=== PATIENT | male | born 1995 | race Two or more races ===

== ENCOUNTER 2024-06-24 13:43 | Inpatient (IN) | payer SELFPAY ==
[~2024-06-24] VITALS: Ht 172.7 cm; Wt 87.2 kg
--- NOTE | 2024-06-24 14:09 | ECG ---
[facility] Test Date: 2024-06-24 Test Time: 14:01:32 Pat Name: TONY SANCHEZ Department: ER Room: 0285 Gender: M Market Research Assistant: VICTORINO : 1995 Requested By: ANGELY ABRAHAM Order Number: [id number] Reading MD: Nash Salas Measurements Intervals [place] Rate: 89 P: 64 SD: 134 QRS: 70 QRSD: 120 T: 54 QT: 404 QTc: 492 Interpretive Statements Sinus rhythm Nonspecific intraventricular conduction delay Inferolateral infarct, old Electronically Signed On 06-24-2024 18:20:47 PDT by Nash Salas Please click the below link to view image of tracing.
--- NOTE | 2024-06-24 14:12 | ED.PDOC ---
History of Present Illness HPI Comments 28M presents to the ER w/ prior Hx of lymphoma cancer and Sx removal from the right neck to the chest which all may be associated to the c/c of Gen weakness. Pt reports on feeling tired, weak and having back pain for the past 2 days due from stress. Social Hx of occasional alcohol use, but denies tobacco and substance use. Family Hx of DM. Denies chills, fever, N/V/D, SOB, CP or no other associated symptoms, modifiers, recent injuries or sick contacts at this time. Time Seen by MD: 14:00 Reviewed Notes: Nurses Notes, Medications, Allergies Allergies: Coded Allergies: NO KNOWN ALLERGIES (Unverified , 06/24/24) Information Source: Patient Mode of Arrival: Ambulatory Severity: Moderate Timing: Days Duration: Since onset, Days Prehospital treatment: None Past Medical History PAST MEDICAL HISTORY: Cancer (Lymphoma) Surgical History (Other): Cancer removal from the right side of the neck to the chest Family History Family History: Reviewed,noncontributory to illness, Unknown Social History Smoker: Non-Smoker Alcohol: Denies ETOH Use Drugs: Denies Drug Use Lives In: Home Constitutional: reports: weakness; denies: chills, diaphoresis, fatigue, fever, malaise, sweats, others EENTM: denies: blurred vision, double vision, ear bleeding, ear discharge, ear drainage, ear pain, ear ringing, eye pain, eye redness, hearing loss, mouth pain, mouth swelling, nasal discharge, nose bleeding, nose congestion, nose pain, photophobia, tearing, throat pain, throat swelling, voice changes, others Respiratory: denies: cough, hemoptysis, orthopnea, SOB at rest, shortness of breath, SOB with excertion, stridor, wheezing, others Cardiovascular: denies: chest pain, dizzy spells, diaphoresis, Dyspnea on exertion, edema, irregular heart beat, left arm pain, lightheadedness, palpitations, PND, syncope, others Gastrointestinal: denies: abdomen distended, abdominal pain, blood streaked bowels, constipated, diarrhea, dysphagia, difficulty swallowing, hematemesis, melena, nausea, poor appetite, poor fluid intake, rectal bleeding, rectal pain, vomiting, others Genitourinary: denies: burning, dysuria, flank pain, frequency, hematuria, incontinence, penile discharge, penile sore, pain, testicle pain, testicle swelling, urgency, others Neurological: denies: dizziness, fainting, headache, left sided numbness, left sided weakness, numbness, paresthesia, pre-existing deficit, right sided numbness, right sided weakness, seizure, speech problems, tingling, tremors, weakness, others Musculoskeletal: reports: back pain; denies: gout, joint pain, joint swelling, muscle pain, muscle stiffness, neck pain, others Integumetry: denies: bruises, change in color, change in hair/nails, dryness, laceration, lesions, lumps, rash, wounds, others Allergic/Immunocompromised: denies: Difficulty Healing, Frequent Infections, Hives, Itching, others Hematologic/Lymphatic: denies: anemia, blood clots, easy bleeding, easy bruising, swollen glands, others Endocrine: denies: excessive hunger, excessive sweating, excessive thirst, excessive urination, flushing, intolerance to cold, intolerance to heat, unexplained weight gain, unexplained weight loss, others Psychiatric: denies: anxiety, bipolar disorder, depression, hopeless, panic disorder, schizophrenia, sleepless, suicidal, others All Other Systems: Reviewed and Negative Physical Exam General Appearance: Moderate Distress, Normal HEENT: Normal ENT Inspection, Pharynx Normal, Scleral Icterus (L), Scleral Icterus (R), TMs Normal Neck: Full Range of Motion, Non-Tender, Normal, Normal Inspection Respiratory: Chest Non-Tender, Lungs Clear, No Accessory Muscle Use, No Respiratory Distress, Normal Breath Sounds Cardiovascular: No Edema, No JVD, No Murmur, No Gallop, Normal Peripheral Pulses, Regular Rate/Rhythm Breast Exam: Deferred Gastrointestinal: No Organomegaly, Non Tender, No Pulsatile Mass, Normal Bowel Sounds, Soft Genitalia: Deferred Pelvic: Deferred Rectal: Deferred Extremities: No calf tenderness, Normal capillary refill, Normal inspection, Normal range of motion, Non-tender, No pedal edema Musculoskeletal : Apperance: Normal Neurologic: Alert, senior biostatistician/group leader II-XII nml as Tested, No Motor Deficits, Normal Affect, Normal Mood, No Sensory Deficits Cerebellar Function: Normal Reflexes: Normal Skin: Dry, Normal Color, Warm Peripheral Pulses: 3+ Radial (R), 3+ Radial (L) Lymphatic: No Adenopathy Was a procedure done? Was a procedure done?: No Differential Dx Considerations may include: Anemia Electrolyte imbalance X-Ray, Labs, Meds, VS Vital Signs Date Time Temp Pulse Resp B/P (MAP) Pulse Ox O2 Delivery O2 Flow Rate FiO2 06/24/24 14:08 97.6 92 16 102/66 (78) 98 97.6 95/65 (75) 06/24/24 14:01 89 Lab Test 06/24/24 14:09 06/24/24 14:05 Range/Units Urine Color Red-brown Yellow Urine Clarity Turbid H Clear Urine pH 6.0 5.0-9.0 Urine Specific [place] 1.024 1.001-1.035 Urine Protein 2+ H Negative Urine Ketones Trace Negative Urine Blood 1+ H Negative /uL Urine Nitrite Negative Negative Urine Bilirubin 2+ Negative Urine Urobilinogen Over Negative mg/dL Urine Leukocyte Esterase Negative Negative /uL Urine RBC 4 0 - 3 /hpf Urine WBC Clumps Present None Seen /hpf Urine Microscopic WBC 18 H 0-3 /HPF Urine Squamous Epithelial Cells Few <5 /hpf Urine Bacteria Few H None Seen /hpf Urine Mucus Few None Seen Urine Glucose Trace Normal mg/dL White Blood Count 6.4 4.4-10.8 10^3/uL Red Blood Count 5.00 4.5-5.90 10^6/uL Hemoglobin 12.9 L 13.5-17.5 g/dL Hematocrit 38.8 L 41.0-53.0 % Mean Corpuscular Volume 77.7 L 80.0-100.0 fL Mean Corpuscular Hemoglobin 25.8 L 28.0-32.0 pg Mean Corpuscular Hemoglobin Concent 33.2 32.0-36.0 g/dL Red Cell Distribution Width 14.3 11.8-14.3 % Platelet Count 106 L 140-450 10^3/uL Mean Platelet Volume 10.5 6.9-10.8 fL Neutrophils (%) (Auto) 84.9 H 37.0-80.0 % Lymphocytes (%) (Auto) 2.5 L 10.0-50.0 % Monocytes (%) (Auto) 12.5 H 0.0-12.0 % Eosinophils (%) (Auto) 0.0 0.0-7.0 % Basophils (%) (Auto) 0.1 0.0-2.0 % Neutrophils # (Auto) 5.4 1.6-8.6 10 ^3/uL Lymphocytes # (Auto) 0.2 L 0.4-5.4 10 ^3/uL Monocytes # (Auto) 0.8 0-1.3 10 ^3/uL Eosinophils # (Auto) 0 0-0.8 10 ^3/uL Basophils # (Auto) 0 0-0.2 10 ^3/uL Nucleated Red Blood Cells 0.1 % Sodium Level 129 L 136-145 mmol/L Potassium Level 3.7 3.5-5.1 mmol/L Chloride Level 89 L 98-107 mmol/L Carbon Dioxide Level 28 20-31 mmol/L Anion Gap 12 5-15 Blood Urea Nitrogen 15 9-23 mg/dL Creatinine 1.14 0.700-1.30 mg/dL Glomerular Filtration Rate Calc 89 >90 mL/min BUN/Creatinine Ratio 13.2 10.0-20.0 Serum Glucose 121 H 74-106 mg/dL Calcium Level 9.3 8.7-10.4 mg/dL Troponin I High Sensitivity 4 </=54 ng/L Patient alert. He is feeling weak. Urinalysis shows dehydration. Vitals stable. Sodium is low. Patient blood sugar slightly elevated. Possible prediabetic. Neutrophils are elevated. WBC within normal limits. Possible urosepsis. Was given Rocephin. He does have a history of lymphoma which was operated on. Chest x-ray does show shadowing. Possibly will need a CT chest. Establish intravenous access. Was given fluids. Reviewed his history. Explained to the patient. Continue monitoring. Time of 1ST Reevaluation: 14:30 Reevaluation 1ST: Unchanged Patient Education/Counseling: Diagnosis, Treatment, Prognosis Family Education/Counseling: No Family Present Departure 1 Departure Time of Disposition: 15:27 Impression: Primary Impression: Hyponatremia Additional Impressions: Generalized weakness Uncontrolled diabetes mellitus Qualified Codes: E13.65 - Other specified diabetes mellitus with hyperglycemia Dehydration Disposition: ADMITTED INPATIENT Admit to: Med Surg Condition: Guarded Critical Care Note Critical Care Time?: No Stability Stability form required: No Heart Score Heart Score: Heart Score Response (Comments) Value History N/A 0 EKG N/A 0 Age N/A 0 Risk Factors N/A 0 Troponin N/A 0 Total 0 I personally scribed for ANGELY ABRAHAM MD ([email or web address]) on 06/24/24 at 14:12. Electronically submitted by Joao Ramos ([email or web address]). ANGELY ABRAHAM MD Jun 24, 2024 14:12
--- NOTE | 2024-06-24 14:38 | DVH ---
CHEST RADIOGRAPH Indication: sob Technique: Single frontal view of the chest was obtained COMPARISON: None FINDINGS: Lines and Tubes: None Lungs: Hypoinflation. No focal consolidation. Pleura: No effusion. No pneumothorax. Cardiomediastinal contours: Convex soft tissue density at the right upper mediastinum of uncertain ca use. There is also convex left hilar density which is also nonspecific but may represent the pulmon efrain artery. Bones: Unremarkable IMPRESSION: 1. Lungs are grossly clear. 2. Indeterminate convex densities at the right upper mediastinum and left hilum. Recommend chest CT.
[2024-06-24 14:49] LABS: Basophils # (auto) 0 10 ^3/uL (0-0.2); Basophils % (auto) 0.1 % (0.0-2.0); Eosinophils # (auto) 0 10 ^3/uL (0-0.8); Lymphocytes # (auto) 0.2 10 ^3/uL (0.4-5.4); White Blood Cell 6.4 10^3/uL (4.4-10.8)
[2024-06-24 14:51] LABS: Hematocrit 38.8 % (41.0-53.0); Hemoglobin 12.9 g/dL (13.5-17.5); Lymphocytes % (auto) 2.5 % (10.0-50.0); Mean Corpuscular Hemoglobin 25.8 pg (28.0-32.0); Mean Corpuscular Hgb Conc. 33.2 g/dL (32.0-36.0); Mean Corpuscular Volume 77.7 fL (80.0-100.0); Monocytes # (auto) 0.8 10 ^3/uL (0-1.3); Monocytes % (auto) 12.5 % (0.0-12.0); Neutrophils # (auto) 5.4 10 ^3/uL (1.6-8.6); Neutrophils % (auto) 84.9 % (37.0-80.0); Nucleated Red Blood Cells % 0.1 %; Platelet Count (auto) 106 10^3/uL (140-450); Red Cell Distribution Width 14.3 % (11.8-14.3)
[2024-06-24 14:56] LABS: Urine Bacteria FEW /hpf (None Seen); Urine Blood 1+ /uL (Negative); Urine Clarity Turbid (Clear); Urine Mucus FEW (None Seen); Urine Protein, UAD 2+ (Negative); Urine Specific Gravity 1.024 (1.001-1.035); Urine Squamous Epithelial Cell FEW /hpf (<5); Urine Urobilinogen OVER mg/dL (Negative); Urine WBC 18 /HPF (0-3); Urine WBC Clumps PRESENT /hpf (None Seen)
[2024-06-24 14:58] LABS: Urine Color RED-Brown (Yellow)
[2024-06-24 15:08] LABS: Potassium 3.7 mmol/L (3.5-5.1)
[2024-06-24 15:09] LABS: Anion Gap 12 (5-15); Calcium 9.3 mg/dL (8.7-10.4); Carbon Dioxide 28 mmol/L (20-31)
[2024-06-24 15:10] LABS: Chloride 89 mmol/L (98-107); Sodium 129 mmol/L (136-145)
[2024-06-24 15:14] LABS: BUN/Creatinine Ratio 13.2 (10.0-20.0); Blood Urea Nitrogen 15 mg/dL (9-23)
[2024-06-24 15:15] LABS: Glucose 121 mg/dL (74-106)
--- NOTE | 2024-06-24 15:57 | DVHHP2 ---
History of Present Illness Reason for Visit: Weakness and back pain History of Present Illness Parish Danielle is a 28-year-old male with past medical history of lymphoma cancer and lymphadenectomy presents to the ED for generalized weakness, cold sweats, fatigue, and back pain x2 days. Patient states that he is under persona l stress and believes this is what is causing the symptoms. Patient denies any recent trauma or injury, lifting of heavy equipment, recent ingestion of spoiled who, recent sick contacts, fever, chest pain, shortness of breath, abdominal pain, nausea, vomiting, diarrhea, lightheadedness, or dizziness. Patient reports that the surgery was when he was 13 years old in a facility in [place]. Past Medical History Lymphoma cancer Past Surgical History: Other (Lymphadenectomy) Family History: DM, Other (Mom with diabetes) Smoke: No ALCOHOL: occassional Drugs: None Lives: with Family Domestic Violence: Neg Review of Systems Constitutional: Yes: Chills, Weakness, Other (Fatigue) Musculoskeletal: back pain Allergies: Coded Allergies: NO KNOWN ALLERGIES (Unverified , 06/24/24) Exam Vital Signs Vital Signs Date Time Temp Pulse Resp B/P (MAP) Pulse Ox O2 Delivery O2 Flow Rate FiO2 06/24/24 14:08 97.6 92 16 102/66 (78) 98 97.6 95/65 (75) General Appearance: Alert, Oriented X3, Cooperative, No acute distress HEENT: Atraumatic, PERRLA, EOMI, Mucous membr. moist/pink Respiratory: Normal air movement Cardiovascular: Normal S1, Normal S2 Abdominal: Normal bowel sounds, Soft, No tenderness, No hepatospenomegaly, No masses Extremities: No clubbing, No cyanosis, No edema, Normal pulses Skin: No significant lesion Neuro: Normal speech, Strength at 5/5 X4 ext, Normal tone, Sensation intact Psych/Mental Status: Mental status NL, Mood NL Labs/Xrays Labs Test 06/24/24 14:09 06/24/24 14:05 Range/Units Urine Color Red-brown Yellow Urine Clarity Turbid H Clear Urine pH 6.0 5.0-9.0 Urine Specific [place] 1.024 1.001-1.035 Urine Protein 2+ H Negative Urine Ketones Trace Negative Urine Blood 1+ H Negative /uL Urine Nitrite Negative Negative Urine Bilirubin 2+ Negative Urine Urobilinogen Over Negative mg/dL Urine Leukocyte Esterase Negative Negative /uL Urine RBC 4 0 - 3 /hpf Urine WBC Clumps Present None Seen /hpf Urine Microscopic WBC 18 H 0-3 /HPF Urine Squamous Epithelial Cells Few <5 /hpf Urine Bacteria Few H None Seen /hpf Urine Mucus Few None Seen Urine Glucose Trace Normal mg/dL White Blood Count 6.4 4.4-10.8 10^3/uL Red Blood Count 5.00 4.5-5.90 10^6/uL Hemoglobin 12.9 L 13.5-17.5 g/dL Hematocrit 38.8 L 41.0-53.0 % Mean Corpuscular Volume 77.7 L 80.0-100.0 fL Mean Corpuscular Hemoglobin 25.8 L 28.0-32.0 pg Mean Corpuscular Hemoglobin Concent 33.2 32.0-36.0 g/dL Red Cell Distribution Width 14.3 11.8-14.3 % Platelet Count 106 L 140-450 10^3/uL Mean Platelet Volume 10.5 6.9-10.8 fL Neutrophils (%) (Auto) 84.9 H 37.0-80.0 % Lymphocytes (%) (Auto) 2.5 L 10.0-50.0 % Monocytes (%) (Auto) 12.5 H 0.0-12.0 % Eosinophils (%) (Auto) 0.0 0.0-7.0 % Basophils (%) (Auto) 0.1 0.0-2.0 % Neutrophils # (Auto) 5.4 1.6-8.6 10 ^3/uL Lymphocytes # (Auto) 0.2 L 0.4-5.4 10 ^3/uL Monocytes # (Auto) 0.8 0-1.3 10 ^3/uL Eosinophils # (Auto) 0 0-0.8 10 ^3/uL Basophils # (Auto) 0 0-0.2 10 ^3/uL Nucleated Red Blood Cells 0.1 % Sodium Level 129 L 136-145 mmol/L Potassium Level 3.7 3.5-5.1 mmol/L Chloride Level 89 L 98-107 mmol/L Carbon Dioxide Level 28 20-31 mmol/L Anion Gap 12 5-15 Blood Urea Nitrogen 15 9-23 mg/dL Creatinine 1.14 0.700-1.30 mg/dL Glomerular Filtration Rate Calc 89 >90 mL/min BUN/Creatinine Ratio 13.2 10.0-20.0 Serum Glucose 121 H 74-106 mg/dL Calcium Level 9.3 8.7-10.4 mg/dL Troponin I High Sensitivity 4 </=54 ng/L CHEST RADIOGRAPH Indication: sob Technique: Single frontal view of the chest was obtained COMPARISON: None FINDINGS: Lines and Tubes: None Lungs: Hypoinflation. No focal consolidation. Pleura: No effusion. No pneumothorax. Cardiomediastinal contours: Convex soft tissue density at the right upper mediastinum of uncertain cause. There is also convex left hilar density which is also nonspecific but may represent the pulmonary artery. Bones: Unremarkable IMPRESSION: 1. Lungs are grossly clear. Assessment/Plan Assessment/Plan Assessment Generalized weakness with fatigue and cold sweats Hyponatremia Thrombocytopenia Intractable back pain History of lymphoma cancer History of lymphadenectomy Plan Admit to med surge Trend lytes UA T bili Lipid panel EKG Troponin negative IV fluids TSH UDS X-ray lumbar spine Chest x-ray noted CT chest ordered Oncology consult Patient reports that he does not take any home medications DVT prophylaxis-SCDs PUD prophylaxis-not indicated no history of GERD or GI bleed Discussed plan of care with patient and nurse Plan discussed with: Patient My Orders Orders - KANWAL ADORNO CLINICAL PSYCHOLOGY PROFESSOR Procedure Category Date Status Time Chest Without Contrast CT 06/24/24 Taken 15:30 NS PHA 06/24/24 Transmitted 15:45 Thyroid Stimulating LAB 06/24/24 Transmitted Hormone 15:39 Admit ADMIT 06/24/24 Transmitted 15:39 Allergies LILLI 06/24/24 Transmitted 15:39 Code Status CODE 06/24/24 Transmitted 15:39 Ondansetron Hcl PHA 06/24/24 Transmitted (Zofran) 15:45 Zinc Sulfate PHA 06/25/24 Transmitted 10:00 Ascorbic Acid Tablet PHA 06/24/24 Transmitted (Vitamin C Tablet) 22:00 Multiple Vitamin PHA 06/25/24 Transmitted Tablet (Mvi Tab) 10:00 Complete Blood Count LAB 06/25/24 Verified 04:00 Comprehensive LAB 06/25/24 Verified Metabolic Panel 04:00 Cardiac DIET 06/24/24 Transmitted Diet-2gna,Lofat,Lochol Dinner Acetaminophen Tablet PHA 06/24/24 Transmitted (Tylenol Tablet) 15:45 Sequential LILLI 06/24/24 Transmitted Compression Device Drug Screen LAB 06/24/24 Transmitted 15:39 * Hematology/Oncology CONS 06/24/24 Transmitted Consult 15:39 Date of Service: Jun 24, 2024 Billing Provider: KANWAL ADONRO Common Visit Codes: [id number] INP/OBS CARE (HIGH) KANWAL ADORNO Jun 24, 2024 15:57
--- NOTE | 2024-06-24 16:23 | DVH ---
CT CHEST WITHOUT CONTRAST INDICATION: Indeterminate convex densities at the right upper mediastin EXAM DATE: 06/24/2024 03:23 PM COMPARISON: None RADIATION DOSE: CTDIvol: 14.13 mGy, DLP: 535.38 mGy*cm PROCEDURE: Helical CT images were obtained of the chest without intravenous contrast. Sagittal and c oronal reconstructions are provided. ADDITIONAL IMAGES / REFORMATS: None All CT scans at this medical facility are performed using dose modulation techniques as appropriate t o a performed exam including the following: Automated exposure control was utilized; adjustment of th e MA and/or KV according to patient size; and use of iterative reconstruction technique. FINDINGS: Bones: Scattered degenerative changes are noted. Visualized Abdomen: Upper retroperitoneal lymphadenopathy. Chest Wall: Normal. Soft tissues: Normal. Mediastinum: Normal. Heart: Coronary artery calcifications are noted. Vessels: Normal. Lymph Nodes: Upper mediastinal and left perihilar lymphadenopathy. Pleura: Normal. Airways: Normal. Lun mm left lower lobe pulmonary nodule. Other: None IMPRESSION: Upper mediastinal and left perihilar lymphadenopathy. Upper retroperitoneal lymphadenopathy. Lymphoma is a consideration. 7 mm left lower lobe pulmonary nodule.
--- NOTE | 2024-06-24 16:27 | DVH ---
CLINICAL INDICATION: back pain TECHNIQUE: 3 radiographic views of the lumbar spine were obtained. Comparison: None FINDINGS/IMPRESSION: 5 [id number] lumbar-type vertebrae. Normal alignment of the lumbar spine. Straightening of the l umbar lordosis. Vertebral body heights are maintained. No evidence of acute traumatic fractures or s pondylolisthesis. No significant degenerative changes of the lumbar spine.
[2024-06-24] MEDS: SODIUM CHLORIDE 0.9% 1,000 ML IV ONE ×2 (16:40→18:00)
[2024-06-24 17:04] VITALS: PULSE 90; RESP 23; O2SAT 97
[2024-06-24 17:06] LABS: Bilirubin, Total 4.7 mg/dL (0.2-1.0)
[2024-06-24 17:53] VITALS: BP 99/60; PULSE 96; RESP 16; TEMP 97.4; O2SAT 97
[2024-06-24] MEDS: SODIUM CHLORIDE 0.9% 1,000 ML IV SCH (18:01)
[2024-06-24 18:02] LABS: Cannabinoid Screen, Urine Pos (NEGATIVE)
[2024-06-24 18:04] LABS: Amphetamine Screen, Urine Neg (NEGATIVE); Barbiturate Scree,Urine Neg (NEGATIVE); Benzodiazephine Screen, Urine Neg (NEGATIVE); Cocaine Screen, Urine Neg (NEGATIVE); Opiate Scree,Urine Neg (NEGATIVE); Phencyclidine Screen, Urine Neg (NEGATIVE)
[2024-06-24 18:10] VITALS: BP 99/60; PULSE 96; RESP 16; TEMP 97.4; O2SAT 97
[2024-06-24 20:00] VITALS: PULSE 95; RESP 20; O2SAT 97
[2024-06-24 21:00] VITALS: BP 110/69; PULSE 120; RESP 22; TEMP 98.9; O2SAT 97
[2024-06-24] MEDS: ASCORBIC ACID 500 MG TAB PO SCH (21:20)
[2024-06-25] VITALS (8 sets, daily range): BP systolic 91–108; BP diastolic 46–65; PULSE 101–120; RESP 16–20; TEMP 98.4–101.4; O2SAT 92–97
[2024-06-25] MEDS: MELATONIN 5 MG TAB PO ONE (01:09)
[2024-06-25] MEDS: ACETAMINOPHEN 325 MG TAB PO PRN (05:03)
[2024-06-25 07:06] LABS: Basophils # (auto) 0 10 ^3/uL (0-0.2); Eosinophils # (auto) 0 10 ^3/uL (0-0.8); Monocytes % (auto) 11.7 % (0.0-12.0); Neutrophils # (auto) 5.2 10 ^3/uL (1.6-8.6)
[2024-06-25 07:07] LABS: Basophils % (auto) 0.2 % (0.0-2.0); Eosinophils % (auto) 0.1 % (0.0-7.0); Hematocrit 32.7 % (41.0-53.0); Hemoglobin 11.4 g/dL (13.5-17.5); Lymphocytes # (auto) 0.4 10 ^3/uL (0.4-5.4); Lymphocytes % (auto) 6.4 % (10.0-50.0); Mean Corpuscular Hgb Conc. 34.8 g/dL (32.0-36.0); Mean Corpuscular Volume 77.7 fL (80.0-100.0); Monocytes # (auto) 0.8 10 ^3/uL (0-1.3); Neutrophils % (auto) 81.6 % (37.0-80.0); Platelet Count (auto) 83 10^3/uL (140-450); Red Blood Cells 4.21 10^6/uL (4.5-5.90); Red Cell Distribution Width 14.1 % (11.8-14.3); White Blood Cell 6.4 10^3/uL (4.4-10.8)
[2024-06-25 07:08] LABS: Alanine Aminotransferase 33 U/L (7-40); Albumin 3.6 g/dL (3.2-4.8); Anion Gap 9 (5-15); BUN/Creatinine Ratio 13.6 (10.0-20.0); Blood Urea Nitrogen 11 mg/dL (9-23); Carbon Dioxide 22 mmol/L (20-31); Total Protein 6.2 g/dL (5.7-8.2)
[2024-06-25 07:12] LABS: Alkaline Phosphatase 301 U/L (46-116); Aspartate Aminotransferase 68 U/L (13-40); Calcium 8.4 mg/dL (8.7-10.4); Chloride 97 mmol/L (98-107); Glucose 113 mg/dL (74-106); Potassium 3.2 mmol/L (3.5-5.1); Sodium 128 mmol/L (136-145)
[2024-06-25] MEDS: ZINC SULFATE 220mg CAP or TAB PO SCH (10:11)
[2024-06-25] MEDS: MULTIPLE VITAMIN TAB PO SCH (10:11)
[2024-06-25] MEDS: ONDANSETRON HCL 4 MG/2 ML VIAL IV PRN (11:41)
--- NOTE | 2024-06-25 16:18 | DVHPN2 ---
Subjective I am assuming the care of the patient from today onwards who was under the care of the hospitalist team. Detailed sign out obtained. Patient's presented to the hospital with a fatigue weight loss intermittent fever drenching sweats and back pain for last 1-2 weeks. Reviewed: Care Plan Changes from previous H/P or p: No Changes Musculoskeletal: back pain Objective Vitals Vital Signs Date Time Temp Pulse Resp B/P (MAP) Pulse Ox O2 Delivery O2 Flow Rate FiO2 06/25/24 13:02 98.5 107 17 105/56 (72) 95 98.5 06/25/24 07:55 Room Air* 0 21 Intake/Output Intake and Output 06/25/24 07:00 Intake Total 3700 ml Balance 3700 ml Intake Oral 1800 ml IV Total 1900 ml # Voids 3 Exam HEENT pupils are reactive CV is S1-S2 regular rate and rhythm Diminished breath sounds bases GI positive bowel sound Extremity no edema LICENSED INVESTMENT SALES ASSISTANT no motor deficit Medications Current Medications Medications Dose Ordered Sig/Chirag Route Start Time Stop Time Status Last Admin Dose Admin Sodium Chloride 1,000 ml @ 125 mls/hr Q8H IV 06/24/24 15:45 06/25/24 07:54 125 MLS/HR Ondansetron HCl 4 mg Q4HP PRN IV 06/24/24 15:45 06/25/24 11:41 4 MG Zinc Sulfate 220 mg DAILY PO 06/25/24 10:00 06/25/24 10:11 220 MG Ascorbic Acid 500 mg BID PO 06/24/24 22:00 06/25/24 10:11 500 MG Multivitamins 1 tab DAILY PO 06/25/24 10:00 06/25/24 10:11 1 TAB Acetaminophen 650 mg Q6HP PRN PO 06/24/24 15:45 06/25/24 05:03 650 MG Laboratory Results Laboratory Tests 06/25/24 05:57 Chemistry Test 06/25/24 05:57 Albumin 3.6 g/dL (3.2-4.8) Calcium Level 8.4 mg/dL (8.7-10.4) L Total Protein 6.2 g/dL (5.7-8.2) LFT Test 06/25/24 05:57 Alanine Aminotransferase (ALT) 33 U/L (7-40) Alkaline Phosphatase 301 U/L (46-116) H Aspartate Amino Transferase (AST) 68 U/L (13-40) H Total Bilirubin 4.0 mg/dL (0.2-1.0) H Urinalysis Test 06/24/24 14:09 Urine Color Red-brown (Yellow) Urine Clarity Turbid (Clear) H Urine pH 6.0 (5.0-9.0) Urine Specific [place] 1.024 (1.001-1.035) Urine Protein 2+ (Negative) H Urine Ketones Trace (Negative) Urine Blood 1+ /uL (Negative) H Urine Nitrite Negative (Negative) Urine Bilirubin 2+ (Negative) Urine Urobilinogen Over mg/dL (Negative) Urine Leukocyte Esterase Negative /uL (Negative) Urine RBC 4 /hpf (0 - 3) Urine WBC Clumps Present /hpf (None Seen) Urine Microscopic WBC 18 /HPF (0-3) H Urine Squamous Epithelial Cells Few /hpf (<5) Urine Bacteria Few /hpf (None Seen) H Urine Mucus Few (None Seen) Urine Glucose Trace mg/dL (Normal) Assessment/Plan Assessment/Plan 28-year-old male with a known history of lymphoma status post lymphadenectomy on the right neck, status post chemotherapy for one year when he was 3-year-old, status post recurrence of lymphoma next year, status post chemotherapy for one mood year, then he was following closely with the Hematology Oncology in [place], but never followed up with the oncologist after the age of 16 year. Presented to the hospital with a intermittent fever, cold sweats at night which drenching the bed lining, unexplained weight loss with a recent weight loss about 10/20 lb in last 1-2 weeks, fatigue, back pain found to have lymphadenopathy in left mediastinal left jennifer hilar as well as left retroperitoneal concerning for lymphoma 1. B symptoms, constitutional symptoms highly suspicious for lymphoma 2. Left mediastinal, left perihilar, retroperitoneal lymphadenopathy concerning for lymphoma 3. History of lymphoma when he was 5/4year-old status post treatment 4. ELEVATED ALKALINE PHOSPHATASE -CHECK LDH, URIC ACID, IR CONSULT FOR RETROPERITONEAL LYMPH NODE BIOPSY VERSUS PULMONARY CONSULTATION FOR BRONCHOSCOPY AND PERIHILAR BIOPSY -KEEP NPO AFTER MIDNIGHT -HEMATOLOGY ONCOLOGY CONSULTATION(TALKED TO DR. Fang Starr, closing coordinator oncologist on the phone) who will follow up with the patient as an outpatient once biopsies confirmed the diagnosis. -all the family member including at bedside as well as other members were notified and explain the working diagnosis they understand and agreeable to plan. Plan discussed with: Patient, Spouse, Other My Orders Orders - AMEE OLMSTEAD MD Procedure Category Date Status Time * Radiologist Consult CONS 06/25/24 Transmitted 16:06 *Consult CONS 06/25/24 Transmitted / 16:06 Npo After Midnight ORDERS 06/25/24 Transmitted Npo (Nothing By DIET 06/26/24 Transmitted Mouth) Diet Breakfast Date of Service: Jun 25, 2024 Billing Provider: AMEE OLMSTEAD MD Common Visit Codes: [id number] INP/OBS CARE(MOD) AMEE OLMSTEAD MD Jun 25, 2024 16:18
[2024-06-25 17:29] LABS: INR 1.57 (0.9-1.15); Prothrombin Time 15.9 sec (9.3-11.8)
[2024-06-25] MEDS: POTASSIUM EFFERVESENT TAB 25 MEQ PO ONE (17:30)
--- NOTE | 2024-06-25 21:23 | DVHINCON2 ---
Date of service: Jun 25, [address] Kunz Reason for Consultation Right hilar lymphadenopathy, pulmonary nodule History of Present Illness A 28-year-old man with past medical history of lymphoma cancer, status post lymphadenectomy who presented with generalized weakness, cold sweats, fatigue, and back pain for two days. He was under personal stress and believes that it was causing his symptoms. Denies any recent trauma. No injury. No recent sick contacts. No fever or chills. No shortness of breath. No nausea, vomiting, diarrhea constipation. Patient states that he had surgery when he was 13 years old in [place]. Patient was admitted for further care, and pulmonary consultation is requested for evaluation and management of right hilar lymphadenopathy and pulmonary nodule. Review of systems: 14 point review of systems is negative unless otherwise noted above. Past medical history: Lymphoma cancer Past surgical history: Lymphadenectomy Medications: Reviewed Allergies: No known drug allergies. Family history: Mother with diabetes. No family history of premature CAD. No family history of lung disease. Social history: Nonsmoker. Social alcohol use. No illicit drug use. Lives with family Family History: Diabetes mellitus G8 MOTHER Grandfather Allergies: Coded Allergies: NO KNOWN ALLERGIES (Unverified , 06/24/24) Current Medications Current Medications Medications (Trade) Dose Ordered Sig/Chirag Route PRN Reason Start Time Stop Time Status Last Admin Zinc Sulfate 220 mg DAILY PO 06/25/24 10:00 06/25/24 10:11 Ascorbic Acid (Vitamin C Tablet) 500 mg BID PO 06/24/24 22:00 06/25/24 10:11 Multivitamins (Mvi Tab) 1 tab DAILY PO 06/25/24 10:00 06/25/24 10:11 Vital Signs Vital Signs Date Time Temp Pulse Resp B/P (MAP) Pulse Ox O2 Delivery O2 Flow Rate FiO2 06/25/24 16:53 98.9 120 16 100/46 (64) 96 98.9 06/25/24 07:55 Room Air* 0 21 Physical Exam Gen.: Patient lying in bed in no apparent distress. He is breathing comfortably on room air. Head: Normocephalic, atraumatic Eyes: EOMI/PERRLA. Ears: Normal hearing. Normal anatomy. Neck/trachea: Trachea midline, supple. Nose: Normal external anatomy. Mouth: Moist mucous membranes. Chest: Fair air entry bilaterally. No wheezing or rhonchi. Cardio vascular: Positive S1, positive S2. Regular rate and rhythm. Abdomen: Positive bowel sounds in all 4 quadrants. Soft, non-tender, non- distended. : Deferred. Rectal: Deferred Skin: Warm, dry. Extremities: 2+ radial pulses bilaterally. No lower extremity edema. Neuro: Awake, alert, oriented x3. No gross motor or sensory deficits. Cranial nerves II through XII intact. Gait not assessed. Labs/Diagnostic Data Labs Test 06/25/24 16:59 06/25/24 05:57 06/24/24 14:09 06/24/24 14:05 Range/Units Prothrombin Time 15.9 H 9.3-11.8 sec Prothrombin Time INR 1.57 H 0.9-1.15 White Blood Count 6.4 4.4-10.8 10^3/uL Red Blood Count 4.21 L 4.5-5.90 10^6/uL Hemoglobin 11.4 L 13.5-17.5 g/dL Hematocrit 32.7 #L 41.0-53.0 % Mean Corpuscular Volume 77.7 L 80.0-100.0 fL Mean Corpuscular Hemoglobin 27.0 L 28.0-32.0 pg Mean Corpuscular Hemoglobin Concent 34.8 32.0-36.0 g/dL Red Cell Distribution Width 14.1 11.8-14.3 % Platelet Count 83 L 140-450 10^3/uL Mean Platelet Volume 10.7 6.9-10.8 fL Neutrophils (%) (Auto) 81.6 H 37.0-80.0 % Lymphocytes (%) (Auto) 6.4 L 10.0-50.0 % Monocytes (%) (Auto) 11.7 0.0-12.0 % Eosinophils (%) (Auto) 0.1 0.0-7.0 % Basophils (%) (Auto) 0.2 0.0-2.0 % Neutrophils # (Auto) 5.2 1.6-8.6 10 ^3/uL Lymphocytes # (Auto) 0.4 0.4-5.4 10 ^3/uL Monocytes # (Auto) 0.8 0-1.3 10 ^3/uL Eosinophils # (Auto) 0 0-0.8 10 ^3/uL Basophils # (Auto) 0 0-0.2 10 ^3/uL Nucleated Red Blood Cells 0.0 % Sodium Level 128 L 136-145 mmol/L Potassium Level 3.2 L 3.5-5.1 mmol/L Chloride Level 97 L 98-107 mmol/L Carbon Dioxide Level 22 20-31 mmol/L Anion Gap 9 5-15 Blood Urea Nitrogen 11 9-23 mg/dL Creatinine 0.81 0.700-1.30 mg/dL Glomerular Filtration Rate Calc 122 >90 mL/min BUN/Creatinine Ratio 13.6 10.0-20.0 Serum Glucose 113 H 74-106 mg/dL Uric Acid 2.4 L 3.7-9.2 mg/dL Calcium Level 8.4 L 8.7-10.4 mg/dL Total Bilirubin 4.0 H 0.2-1.0 mg/dL Aspartate Amino Transferase (AST) 68 H 13-40 U/L Alanine Aminotransferase (ALT) 33 7-40 U/L Alkaline Phosphatase 301 H 46-116 U/L Lactate Dehydrogenase 256 H 120-246 U/L Total Protein 6.2 5.7-8.2 g/dL Albumin 3.6 3.2-4.8 g/dL Urine Color Red-brown Yellow Urine Clarity Turbid H Clear Urine pH 6.0 5.0-9.0 Urine Specific [place] 1.024 1.001-1.035 Urine Protein 2+ H Negative Urine Ketones Trace Negative Urine Blood 1+ H Negative /uL Urine Nitrite Negative Negative Urine Bilirubin 2+ Negative Urine Urobilinogen Over Negative mg/dL Urine Leukocyte Esterase Negative Negative /uL Urine RBC 4 0 - 3 /hpf Urine WBC Clumps Present None Seen /hpf Urine Microscopic WBC 18 H 0-3 /HPF Urine Squamous Epithelial Cells Few <5 /hpf Urine Bacteria Few H None Seen /hpf Urine Mucus Few None Seen Urine Glucose Trace Normal mg/dL Urine Opiates Screen Neg NEGATIVE Urine Fentanyl Screen Neg NEGATIVE Urine Barbiturates Screen Neg NEGATIVE Urine Phencyclidine Screen Neg NEGATIVE Urine Amphetamines Screen Neg NEGATIVE Urine Benzodiazepines Screen Neg NEGATIVE Urine Cocaine Screen Neg NEGATIVE Urine Cannabinoids Screen Pos NEGATIVE Troponin I High Sensitivity 4 </=54 ng/L Thyroid Stimulating Hormone (TSH) 2.03 0.55-4.78 uIU/mL Assessment Impression: Left hilar lymphadenopathy Right upper mediastinum lesion Obesity BMI 30 History of lymphoma cancer History lymphadenectomy Intractable back pain Thrombocytopenia Hyponatremia Generalized weakness with fatigue Plan: Recommend CT chest with contrast for further evaluation of mediastinum. After CT chest with contrast we can consider bronchoscopy. Alternative would be to obtain an outpatient PET-CT scan to evaluate best site for biopsy. On room air Pain control Avoid over-sedation IV fluid hydration with normal saline at 125 mL an hour Vitamin supplementation Diet and lifestyle modifications for weight reduction Obesity - complicates all care DVT prophylaxis-SCDs Condition: Critical Prognosis: Poor given multiple comorbidities. Rest of plan per hospitalist and other consultants. A total of 60 minutes of critical care time was spent reviewing the patient record, examining the patient, making a diagnostic and therapeutic plan, discussing this plan with the medical personnel, following up on diagnostic studies and following the patient for clinical stability excluding any and all procedures. At least 50% of this time was spent in direct, [id number] contact. Thank you, Dr. Kunz, for allowing me to participate in this patient's care. Further recommendations will depend on patient's clinical course. Please do not hesitate to contact me if you have any questions or concerns. This medical document was created using an electronic medical record system with [employer] dictation system. Although this document has been carefully reviewed, there may still be some phonetic and typographical errors. These areas are purely typographical due to imperfections of the software programs, and do not reflect any compromise in the patient's medical care. Plan discussed with: Other (RN/Dr. Kunz) BHANU BONILLA MD Jun 25, 2024 21:23
[2024-06-26] VITALS (9 sets, daily range): BP systolic 92–113; BP diastolic 47–66; PULSE 98–123; RESP 16–20; TEMP 97.5–102.7; O2SAT 92–98
[2024-06-26 07:01] LABS: Albumin 3.7 g/dL (3.2-4.8); Anion Gap 11 (5-15); Carbon Dioxide 25 mmol/L (20-31); Total Protein 6.6 g/dL (5.7-8.2)
[2024-06-26 07:06] LABS: Alanine Aminotransferase 40 U/L (7-40); Alkaline Phosphatase 273 U/L (46-116); Aspartate Aminotransferase 102 U/L (13-40); Bilirubin, Total 4.9 mg/dL (0.2-1.0); Blood Urea Nitrogen 9 mg/dL (9-23); Calcium 8.7 mg/dL (8.7-10.4); Chloride 95 mmol/L (98-107); Glucose 107 mg/dL (74-106); Potassium 3.5 mmol/L (3.5-5.1); Sodium 131 mmol/L (136-145)
--- NOTE | 2024-06-26 09:59 | DVHPN2 ---
Subjective The patient is seen and examined at bedside. Complain of abdominal pain. Reviewed: Care Plan Changes from previous H/P or p: No Changes Musculoskeletal: back pain Objective Vitals Vital Signs Date Time Temp Pulse Resp B/P (MAP) Pulse Ox O2 Delivery O2 Flow Rate FiO2 06/26/24 09:00 97.5 98 20 96/63 (74) 96 97.5 06/25/24 20:00 Room Air* 0 21 Intake/Output Intake and Output 06/26/24 07:00 Intake Total 1350 ml Balance 1350 ml Intake Oral 1300 ml IV Total 50 ml # Voids 6 General Appearance: Alert, Oriented X3, Cooperative, No acute distress HEENT: Atraumatic, PERRLA, EOMI, Mucous membr. moist/pink Neck: Supple Lungs: Clear to auscultation, Normal air movement Cardiovascular: Regular rate, Normal S1, Normal S2, No murmurs, Gallops, Rubs Abdomen: Normal bowel sounds, Soft, No tenderness Neuro: Cranial nerves 3-12 NL Skin: Intact Psych/Mental Status: Mental status NL Medications Current Medications Medications Dose Ordered Sig/Chirag Route Start Time Stop Time Status Last Admin Dose Admin Sodium Chloride 1,000 ml @ 125 mls/hr Q8H IV 06/24/24 15:45 06/25/24 23:45 125 MLS/HR Ondansetron HCl 4 mg Q4HP PRN IV 06/24/24 15:45 06/25/24 11:41 4 MG Zinc Sulfate 220 mg DAILY PO 06/25/24 10:00 06/25/24 10:11 220 MG Ascorbic Acid 500 mg BID PO 06/24/24 22:00 06/25/24 21:42 500 MG Multivitamins 1 tab DAILY PO 06/25/24 10:00 06/25/24 10:11 1 TAB Acetaminophen 650 mg Q6HP PRN PO 06/24/24 15:45 06/26/24 05:36 650 MG Laboratory Results Laboratory Tests 06/25/24 05:57 06/26/24 05:06 Chemistry Test 06/26/24 05:06 Albumin 3.7 g/dL (3.2-4.8) Calcium Level 8.7 mg/dL (8.7-10.4) Total Protein 6.6 g/dL (5.7-8.2) Coagulation Test 06/25/24 16:59 Prothrombin Time 15.9 sec (9.3-11.8) H Prothrombin Time INR 1.57 (0.9-1.15) H LFT Test 06/26/24 05:06 Alanine Aminotransferase (ALT) 40 U/L (7-40) Alkaline Phosphatase 273 U/L (46-116) H Aspartate Amino Transferase (AST) 102 U/L (13-40) H Total Bilirubin 4.9 mg/dL (0.2-1.0) H Urinalysis Test 06/24/24 14:09 Urine Color Red-brown (Yellow) Urine Clarity Turbid (Clear) H Urine pH 6.0 (5.0-9.0) Urine Specific [place] 1.024 (1.001-1.035) Urine Protein 2+ (Negative) H Urine Ketones Trace (Negative) Urine Blood 1+ /uL (Negative) H Urine Nitrite Negative (Negative) Urine Bilirubin 2+ (Negative) Urine Urobilinogen Over mg/dL (Negative) Urine Leukocyte Esterase Negative /uL (Negative) Urine RBC 4 /hpf (0 - 3) Urine WBC Clumps Present /hpf (None Seen) Urine Microscopic WBC 18 /HPF (0-3) H Urine Squamous Epithelial Cells Few /hpf (<5) Urine Bacteria Few /hpf (None Seen) H Urine Mucus Few (None Seen) Urine Glucose Trace mg/dL (Normal) Labs and/or images reviewed: Labs reviewed by me Assessment/Plan Assessment/Plan 28-year-old male with a known history of lymphoma status post lymphadenectomy on the right neck, status post chemotherapy for one year when he was 3-year-old, status post recurrence of lymphoma next year, status post chemotherapy for one mood year, then he was following closely with the Hematology Oncology in [place], but never followed up with the oncologist after the age of 16 year. Presented to the hospital with a intermittent fever, cold sweats at night which drenching the bed lining, unexplained weight loss with a recent weight loss about 10/20 lb in last 1-2 weeks, fatigue, back pain found to have lymphadenopathy in left mediastinal left jennifer hilar as well as left retroperitoneal concerning for lymphoma 1. B symptoms, constitutional symptoms highly suspicious for lymphoma 2. Left mediastinal, left perihilar, retroperitoneal lymphadenopathy concerning for lymphoma 3. History of lymphoma when he was [age]year-old status post treatment 4. ELEVATED ALKALINE PHOSPHATASE -CHECK LDH, URIC ACID, IR CONSULT FOR RETROPERITONEAL LYMPH NODE BIOPSY VERSUS PULMONARY CONSULTATION FOR BRONCHOSCOPY AND PERIHILAR BIOPSY -KEEP NPO AFTER MIDNIGHT -HEMATOLOGY ONCOLOGY CONSULTATION(TALKED TO DR. Fang Starr, insurance follow up representative oncologist on the phone) who will follow up with the patient as an outpatient once biopsies confirmed the diagnosis. -all the family member including at bedside as well as other members were notified and explain the working diagnosis they understand and agreeable to plan. Continuing current management. Waiting for Hematology/ Oncology to see the patient Waiting for pathology input. This medical document was created using an electronic medical record system with [employer] direct computerized dictation system. Although this document has been carefully reviewed, there may still be some phonetic and typographical errors. These areas are purely typographical due to imperfections of the software programs, and do not reflect any compromise in the patient's medical care. Plan discussed with: Patient Date of Service: Jun 26, 2024 Billing Provider: MACK SIMONS MD Common Visit Codes: [id number] INP/OBS CARE(HIGH) MACK SIMONS MD Jun 26, 2024 09:59
[2024-06-26] MEDS: IOHEXOL 300 MG/ML 100ML BOTTLE IJ ONE (11:34)
--- NOTE | 2024-06-26 13:24 | DVH ---
EXAM: CT CHEST WITH CONTRAST History: further evaluation of mediastinum Comparison Study: CT CHEST WITHOUT CONTRAST on DOS: 06/24/24 TECHNIQUE: A digital windows systems engineer image was obtained. During the uneventful, intravenous administration of c ontrast material, multislice data acquisition was obtained through the chest. The data set was subseq uently reconstructed into axial, coronal, and sagittal images. Radiation Dose : CTDI vol 11.4 mGy, DLP 389.27 mGy*cm. Findings: Lungs: 0.8 cm left lower lobe pulmonary nodule, similar to prior. Pleura: Unremarkable Heart/Great vessels: No cardiomegaly or pericardial effusion. Mediastinum: 3.0 x 5.6 cm erik [employer]glomerate at level 1R. 2.7 x 3.6 cm subcarinal node. Additional sm aller mediastinal nodes. Bilateral hilar nodes, [id number]. Soft tissues/Bones: Unremarkable Numerous hypodense lesions throughout the spleen. Multiple scattered hypodense lesions in the liver. Partially visualized retroperitoneal and gastrohepatic nodes. Impression: 1. No acute cardiopulmonary disease. 2. Unchanged 0.8 cm left lower lobe pulmonary nodule. 3. Multi station mediastinal, hilar, and abdominal lymphadenopathy with multiple hypodense lesions in the liver and spleen. Findings are favored to reflect lymphoma. Recommend further evaluation with PET-CT.
[2024-06-27] VITALS (9 sets, daily range): BP systolic 94–161; BP diastolic 46–91; PULSE 84–120; RESP 16–30; TEMP 97.9–102.4; O2SAT 96–97
--- NOTE | 2024-06-27 11:13 | DVHPN2 ---
Subjective The patient is seen and examined at bedside. Complain of abdominal pain. Reviewed: Care Plan Musculoskeletal: back pain Objective Vitals Vital Signs Date Time Temp Pulse Resp B/P (MAP) Pulse Ox O2 Delivery O2 Flow Rate FiO2 06/27/24 09:00 99.3 110 20 94/56 (69) 96 99.3 06/26/24 20:00 Room Air* 0 21 Intake/Output Intake and Output 06/27/24 07:00 Intake Total 1900 ml Balance 1900 ml Intake Oral 900 ml IV Total 1000 ml # Voids 3 General Appearance: Alert, Oriented X3, Cooperative, No acute distress HEENT: Atraumatic, PERRLA, EOMI, Mucous membr. moist/pink Neck: Supple Lungs: Clear to auscultation, Normal air movement Cardiovascular: Regular rate, Normal S1, Normal S2, No murmurs, Gallops, Rubs Abdomen: Normal bowel sounds, Soft, No tenderness Neuro: Cranial nerves 3-12 NL Skin: Intact Psych/Mental Status: Mental status NL Medications Current Medications Medications Dose Ordered Sig/Chirag Route Start Time Stop Time Status Last Admin Dose Admin Sodium Chloride 1,000 ml @ 125 mls/hr Q8H IV 06/24/24 15:45 06/27/24 09:38 125 MLS/HR Ondansetron HCl 4 mg Q4HP PRN IV 06/24/24 15:45 06/25/24 11:41 4 MG Zinc Sulfate 220 mg DAILY PO 06/25/24 10:00 06/27/24 09:33 220 MG Ascorbic Acid 500 mg BID PO 06/24/24 22:00 06/27/24 09:33 500 MG Multivitamins 1 tab DAILY PO 06/25/24 10:00 06/27/24 09:33 1 TAB Acetaminophen 650 mg Q6HP PRN PO 06/24/24 15:45 06/27/24 01:13 650 MG Laboratory Results Laboratory Tests 06/25/24 05:57 06/26/24 05:06 Urinalysis Test 06/24/24 14:09 Urine Color Red-brown (Yellow) Urine Clarity Turbid (Clear) H Urine pH 6.0 (5.0-9.0) Urine Specific [place] 1.024 (1.001-1.035) Urine Protein 2+ (Negative) H Urine Ketones Trace (Negative) Urine Blood 1+ /uL (Negative) H Urine Nitrite Negative (Negative) Urine Bilirubin 2+ (Negative) Urine Urobilinogen Over mg/dL (Negative) Urine Leukocyte Esterase Negative /uL (Negative) Urine RBC 4 /hpf (0 - 3) Urine WBC Clumps Present /hpf (None Seen) Urine Microscopic WBC 18 /HPF (0-3) H Urine Squamous Epithelial Cells Few /hpf (<5) Urine Bacteria Few /hpf (None Seen) H Urine Mucus Few (None Seen) Urine Glucose Trace mg/dL (Normal) Assessment/Plan Assessment/Plan 28-year-old male with a known history of lymphoma status post lymphadenectomy on the right neck, status post chemotherapy for one year when he was 3-year-old, status post recurrence of lymphoma next year, status post chemotherapy for one mood year, then he was following closely with the Hematology Oncology in [place], but never followed up with the oncologist after the age of 16 year. Presented to the hospital with a intermittent fever, cold sweats at night which drenching the bed lining, unexplained weight loss with a recent weight loss about 10/20 lb in last 1-2 weeks, fatigue, back pain found to have lymphadenopathy in left mediastinal left jennifer hilar as well as left retroperitoneal concerning for lymphoma 1. B symptoms, constitutional symptoms highly suspicious for lymphoma 2. Left mediastinal, left perihilar, retroperitoneal lymphadenopathy concerning for lymphoma 3. History of lymphoma when he was [age]year-old status post treatment 4. ELEVATED ALKALINE PHOSPHATASE -CHECK LDH, URIC ACID, IR CONSULT FOR RETROPERITONEAL LYMPH NODE BIOPSY VERSUS PULMONARY CONSULTATION FOR BRONCHOSCOPY AND PERIHILAR BIOPSY -KEEP NPO AFTER MIDNIGHT -HEMATOLOGY ONCOLOGY CONSULTATION(TALKED TO DR. Fang Starr, operating room rn oncologist on the phone) who will follow up with the patient as an outpatient once biopsies confirmed the diagnosis. -all the family member including at bedside as well as other members were notified and explain the working diagnosis they understand and agreeable to plan. Continuing current management. Waiting for Hematology/ Oncology to see the patient Waiting for pathology input. This medical document was created using an electronic medical record system with [employer] direct computerized dictation system. Although this document has been carefully reviewed, there may still be some phonetic and typographical errors. These areas are purely typographical due to imperfections of the software programs, and do not reflect any compromise in the patient's medical care. MACK SIMONS MD Jun 27, 2024 11:13
[2024-06-27] MEDS: POLYETHYLENE GLYCOL 17 GM PWDR PO PRN (11:52)
[2024-06-27 13:27] LABS: Alanine Aminotransferase 37 U/L (7-40); Albumin 3.2 g/dL (3.2-4.8); Alkaline Phosphatase 240 U/L (46-116); Anion Gap 8 (5-15); Aspartate Aminotransferase 83 U/L (13-40); BUN/Creatinine Ratio 15.3 (10.0-20.0); Bilirubin, Total 4.7 mg/dL (0.2-1.0); Blood Urea Nitrogen 9 mg/dL (9-23); Calcium 8.2 mg/dL (8.7-10.4); Carbon Dioxide 25 mmol/L (20-31); Chloride 99 mmol/L (98-107); Glucose 146 mg/dL (74-106); Potassium 3.1 mmol/L (3.5-5.1); Sodium 132 mmol/L (136-145); Total Protein 5.6 g/dL (5.7-8.2)
[2024-06-27 13:31] LABS: Basophils # (auto) 0 10 ^3/uL (0-0.2); Basophils % (auto) 0.2 % (0.0-2.0); Eosinophils # (auto) 0 10 ^3/uL (0-0.8); Eosinophils % (auto) 0.1 % (0.0-7.0); Hematocrit 33.2 % (41.0-53.0); Hemoglobin 10.8 g/dL (13.5-17.5); Lymphocytes # (auto) 0.1 10 ^3/uL (0.4-5.4); Lymphocytes % (auto) 3.4 % (10.0-50.0); Mean Corpuscular Hemoglobin 25.2 pg (28.0-32.0); Mean Corpuscular Hgb Conc. 32.6 g/dL (32.0-36.0); Mean Corpuscular Volume 77.2 fL (80.0-100.0); Monocytes # (auto) 0.3 10 ^3/uL (0-1.3); Monocytes % (auto) 9.6 % (0.0-12.0); Neutrophils % (auto) 86.7 % (37.0-80.0); Nucleated Red Blood Cells % 0.1 %; Platelet Count (auto) 93 10^3/uL (140-450); Red Cell Distribution Width 14.9 % (11.8-14.3); White Blood Cell 3.4 10^3/uL (4.4-10.8)
--- NOTE | 2024-06-27 13:48 | DVH ---
Exam: CT CT AB PEL WO CON-NO ORAL OR IV History: POSSIBLE LYMPH NODE BIOPSY Comparison Study: None available at time of dictation. TECHNIQUE: Multidetector CT of the abdomen and pelvis without IV contrast. Axial, coronal and sagitta l multiplanar reformats were obtained from the axial data set by the technologist. Radiation Dose Information: CT Dose: CTDI volume is 8.59 mGy. Dose-length product is 542.14 mGy*cm FINDINGS: 6 mm right middle lobe pleural-based solid nodule. 1 cm left lower lobe solid nodule. Lingula right m iddle lobe atelectasis. Trace right-sided pleural effusion with associated atelectasis. Partially vi sualized heart is unremarkable. Moderate hepatomegaly. Otherwise, liver, spleen, pancreas and adrenal glands unremarkable. There is cholelithiasis with minimal pericholecystic edema. No significant gallbladder wall thickening. Subcentimeter left renal hyperdense lesion that is too small to characterize may represent a hemorrha gic / proteinaceous cyst. Mild nonspecific bilateral perirenal fat stranding. Otherwise, Kidneys, ur eters and urinary bladder unremarkable. Prostate is unremarkable. Stomach is unremarkable. Small bowel loops are unremarkable. Unremarkable. Fecal material within the colon. There is short segmental rectal wall thickening which may be due to decompressed state. No evidence of intraperitoneal free air or free fluid. No evidence of aortic aneurysm or dissection. There is recanalization of the umbilical vein. Slightly prominent retroperitoneal and upper abdominal lymph nodes, largest measuring about 2 cm in s hort axis. The soft tissues unremarkable. Tiny fat containing umbilical hernia. Sclerotic foci of the bilateral proximal femur which may represent bone islands. IMPRESSION: No evidence of acute abdominopelvic abnormalities. Upper abdominal and retroperitoneal lymph nodes measuring up to 2 cm in short axis. Hepatomegaly with recanalization of the umbilical vein. Correlate with laboratory values for possibl e early sclerotic changes. Cholelithiasis with nonspecific minimal pericholecystic edema. Right upper quadrant ultrasound shoul d be considered for further evaluation if there is concern for acute cholecystitis. Moderate amount of fecal material within the colon. 6 mm right middle lobe pleural-based solid nodule. 1 cm left lower lobe solid nodule.recommend follow -up per Fleischner criteria. Trace right-sided pleural effusion with associated atelectasis. Additional findings as above.
[2024-06-27] MEDS: SODIUM CHLORIDE 0.9% 500 ML IV ONE (17:44)
[2024-06-27] MEDS: IBUPROFEN 600 MG TAB PO PRN (20:41)
--- NOTE | 2024-06-27 21:06 | DVHPN2 ---
Progress Note - Dictate Date Seen: Jun 27, 2024 Medical Necessity Reason Pt with a Central, PICC or Fol: No Subjective Patient seen and examined at bedside. Breathing comfortably on room air. Overnight events reviewed. vital signs Vital Sign Date Time Temp Pulse Resp B/P (MAP) Pulse Ox O2 Delivery O2 Flow Rate FiO2 06/27/24 17:56 100.7 06/27/24 17:00 120 30 120/64 (82) 97 06/27/24 08:00 Room Air* 0 21 Total Intake and Output 06/26/24 06/26/24 06/27/24 15:00 23:00 07:00 Intake Total 1200 ml 700 ml Balance 1200 ml 700 ml medications Current Medications Medications Dose Ordered Sig/Chirag Route Start Time Stop Time Status Last Admin Dose Admin Sodium Chloride 1,000 ml @ 125 mls/hr Q8H IV 06/24/24 15:45 06/27/24 15:45 125 MLS/HR Ondansetron HCl 4 mg Q4HP PRN IV 06/24/24 15:45 06/25/24 11:41 4 MG Zinc Sulfate 220 mg DAILY PO 06/25/24 10:00 06/27/24 09:33 220 MG Ascorbic Acid 500 mg BID PO 06/24/24 22:00 06/27/24 09:33 500 MG Multivitamins 1 tab DAILY PO 06/25/24 10:00 06/27/24 09:33 1 TAB Acetaminophen 650 mg Q6HP PRN PO 06/24/24 15:45 06/27/24 16:56 650 MG Docusate Sodium 100 mg BID PO 06/27/24 22:00 Polyethylene Glycol 17 gm DAILYPRN PRN PO 06/27/24 11:30 06/27/24 11:52 17 GM Ibuprofen 600 mg Q8HP PRN PO 06/27/24 19:00 06/27/24 20:41 600 MG objective Gen.: Patient lying in bed in no apparent distress. Breathing on room air. Head: Normocephalic, atraumatic. Eyes: EOMI/PERRLA. Ears: Normal hearing. Normal anatomy. Neck/trachea: Trachea midline, supple. Nose: Normal external anatomy. Mouth: Moist mucous membranes. Chest: Decreased air entry bilaterally. No wheezing or rhonchi. Cardiovascular: Positive S1, positive S2. Regular rate and rhythm. Abdomen: Positive bowel sounds in all 4 quadrants. Soft, non-tender, non- distended. : Deferred. Rectal: Deferred. Skin: Warm, dry. Intact. Extremities: 2+ radial pulses bilaterally. No lower extremity edema. Neuro: Awake, alert, oriented x3. No gross motor or sensory deficits. Cranial nerves II through XII intact. Gait not assessed. laboratory and microbiology Laboratory Tests 06/27/24 13:04 Test 06/27/24 13:04 Range/Units Serum Glucose 146 H 74-106 mg/dL Assessment/Plan Impression: Left hilar lymphadenopathy Right upper mediastinum lesion Obesity BMI 30 History of lymphoma cancer History lymphadenectomy Intractable back pain Thrombocytopenia Hyponatremia Generalized weakness with fatigue Events: Breathing on room air Supplemental oxygen PRN Lymphadenopathy - patient not a candidate for transbronchial biopsy. IR was consulted for lymph node biopsy- possibility of poor yield Recommend EBUS for lymph node sampling Patient deferred bronchoscopy and CT-guided biopsy. Vitamin supplementation Continue IV fluid hydration with normal saline CT abd-pelvis demonstrated: A 6 mm RML pleural-based solid nodule. 1 cm LLL solid nodule Trace right pleural effusion with atelectasis. Upper abdominal and retroperitoneal lymph nodes measuring up to 2 cm in short axis. Cholelithiasis with nonspecific minimal pericholecystic edema. See report for full details. Labs and imaging reviewed. Rest of plan as noted below. Plan: On room air Supplemental oxygen PRN. Pain control Avoid over-sedation IV fluid hydration with normal saline Vitamin supplementation DVT prophylaxis-SCDs Prognosis: Poor given multiple comorbidities. Rest of plan per hospitalist and other consultants. Thank you, Dr. Kunz, for allowing me to participate in this patient's care. Further recommendations will depend on patient's clinical course. Please do not hesitate to contact me if you have any questions or concerns. This medical document was created using an electronic medical record system with [employer] dictation system. Although this document has been carefully reviewed, there may still be some phonetic and typographical errors. These areas are purely typographical due to imperfections of the software programs, and do not reflect any compromise in the patient's medical care. Dietary Evaluation Review Recommendations by RD: Increase Calorie Intake, Protein Supplementation Comments: 1) Ensure Enlive BID 2) Refer to out-patient RD/[facility] for weight management 3) continue current plan of care Expected Outcomes/Goals: Pt will meet >75% estimated needs To maintain BW and/or minimize wt loss Fu 3-5 days Food and Nutrition Intake (Mod: <75% est energy req 7days Interpretation of weight loss: >2% in 1 week Fluid Accumulation (N/A): N/A Protein Calorie Malnutrition: Non-Severe Is there a minimum of two crit: Yes Plan discussed with: Patient, Other (YAMILE Chairez) BHANU BONILLA MD Jun 27, 2024 21:05
[2024-06-27] MEDS: DOCUSATE SOD 100 MG CAP PO SCH (21:51)
[2024-06-28] VITALS (7 sets, daily range): BP systolic 91–99; BP diastolic 56–63; PULSE 76–99; RESP 17–18; TEMP 91.7–97.3; O2SAT 96–99
[2024-06-28] MEDS: POTASSIUM CHL 20 Meq TABLET PO ONE (09:30)
[2024-06-28] MEDS: cefTRIAXone 1GM/50ML D5W 50 ML IV ONE (10:11)
[2024-06-28] MEDS: SODIUM CHLORIDE 0.9% 500 ML IV ONE (11:00)
--- NOTE | 2024-06-28 18:47 | DVHPN2 ---
Progress Note - Dictate Date Seen: Jun 28, 2024 Medical Necessity Reason Pt with a Central, PICC or Fol: No Subjective Patient seen and examined at bedside. Breathing comfortably on room air. Overnight events reviewed. vital signs Vital Sign Date Time Temp Pulse Resp B/P (MAP) Pulse Ox O2 Delivery O2 Flow Rate FiO2 06/28/24 16:38 91.7 99 17 99/63 (75) 99 91.7 06/28/24 08:00 Room Air* 0 21 Total Intake and Output 06/27/24 06/27/24 06/28/24 15:00 23:00 07:00 Intake Total 2900 ml 400 ml Balance 2900 ml 400 ml medications Current Medications Medications Dose Ordered Sig/Chirag Route Start Time Stop Time Status Last Admin Dose Admin Sodium Chloride 1,000 ml @ 125 mls/hr Q8H IV 06/24/24 15:45 06/28/24 15:45 125 MLS/HR Ondansetron HCl 4 mg Q4HP PRN IV 06/24/24 15:45 06/25/24 11:41 4 MG Zinc Sulfate 220 mg DAILY PO 06/25/24 10:00 06/28/24 10:11 220 MG Ascorbic Acid 500 mg BID PO 06/24/24 22:00 06/28/24 10:11 500 MG Multivitamins 1 tab DAILY PO 06/25/24 10:00 06/28/24 10:11 1 TAB Acetaminophen 650 mg Q6HP PRN PO 06/24/24 15:45 06/27/24 16:56 650 MG Docusate Sodium 100 mg BID PO 06/27/24 22:00 06/28/24 10:11 100 MG Polyethylene Glycol 17 gm DAILYPRN PRN PO 06/27/24 11:30 06/27/24 11:52 17 GM Ibuprofen 600 mg Q8HP PRN PO 06/27/24 19:00 06/28/24 04:28 600 MG Ceftriaxone Sodium 50 ml @ 100 mls/hr DAILY@09 IV 06/29/24 09:00 objective Gen.: Patient lying in bed in no apparent distress. Breathing on room air. Head: Normocephalic, atraumatic. Eyes: EOMI/PERRLA. Ears: Normal hearing. Normal anatomy. Neck/trachea: Trachea midline, supple. Nose: Normal external anatomy. Mouth: Moist mucous membranes. Chest: Decreased air entry bilaterally. No wheezing or rhonchi. Cardiovascular: Positive S1, positive S2. Regular rate and rhythm. Abdomen: Positive bowel sounds in all 4 quadrants. Soft, non-tender, non- distended. : Deferred. Rectal: Deferred. Skin: Warm, dry. Intact. Extremities: 2+ radial pulses bilaterally. No lower extremity edema. Neuro: Awake, alert, oriented x3. No gross motor or sensory deficits. Cranial nerves II through XII intact. Gait not assessed. laboratory and microbiology Laboratory Tests 06/27/24 13:04 Test 06/27/24 13:04 Range/Units Serum Glucose 146 H 74-106 mg/dL Assessment/Plan Impression: Left hilar lymphadenopathy Right upper mediastinum lesion Obesity BMI 30 History of lymphoma cancer History lymphadenectomy Intractable back pain Thrombocytopenia Hyponatremia Generalized weakness with fatigue Events: Remains on room air Supplemental oxygen PRN Lymphadenopathy - patient not a candidate for transbronchial biopsy. IR was consulted for lymph node biopsy- possibility of poor yield Recommend EBUS for lymph node sampling Patient deferred bronchoscopy and CT-guided biopsy. IR recommendations appreciated Hypothermia - received IV fluid bolus Obtain blood and urine cultures Patient with sweating/diaphoresis Continue antibiotics Vitamin supplementation Continue IV fluid hydration with normal saline Monitor renal function Monitor electrolytes. Supplement as necessary. Potassium supplemented. CT abd-pelvis demonstrated: A 6 mm RML pleural-based solid nodule. 1 cm LLL solid nodule Trace right pleural effusion with atelectasis. Upper abdominal and retroperitoneal lymph nodes measuring up to 2 cm in short axis. Cholelithiasis with nonspecific minimal pericholecystic edema. See report for full details. Labs and imaging reviewed. Rest of plan as noted below. Plan: On room air Supplemental oxygen PRN. Continue antibiotics IV fluid hydration with normal saline Vitamin supplementation DVT prophylaxis-SCDs Prognosis: Poor given multiple comorbidities. Rest of plan per hospitalist and other consultants. Thank you, Dr. Kunz, for allowing me to participate in this patient's care. Further recommendations will depend on patient's clinical course. Please do not hesitate to contact me if you have any questions or concerns. This medical document was created using an electronic medical record system with [employer] system. Although this document has been carefully reviewed, there may still be some phonetic and typographical errors. These areas are purely typographical due to imperfections of the software programs, and do not reflect any compromise in the patient's medical care. Dietary Evaluation Review Recommendations by RD: Increase Calorie Intake, Protein Supplementation Comments: 1) Ensure Enlive BID 2) Refer to out-patient RD/[facility] for weight management 3) continue current plan of care Expected Outcomes/Goals: Pt will meet >75% estimated needs To maintain BW and/or minimize wt loss Fu 3-5 days Food and Nutrition Intake (Mod: <75% est energy req 7days Interpretation of weight loss: >2% in 1 week Fluid Accumulation (N/A): N/A Protein Calorie Malnutrition: Non-Severe Is there a minimum of two crit: Yes Plan discussed with: Patient, Other (YAMILE Chairez) BHANU BONILLA MD Jun 28, 2024 18:47
[2024-06-29 01:00] VITALS: BP 95/54; PULSE 91; RESP 18; TEMP 97.5; O2SAT 97
[2024-06-29 05:00] VITALS: BP 96/59; PULSE 93; RESP 18; TEMP 97.8; O2SAT 98
[2024-06-29 08:00] VITALS: PULSE 90; RESP 20; O2SAT 98
[2024-06-29 08:30] VITALS: BP 107/69; PULSE 99; RESP 20; TEMP 97.9; O2SAT 97
[2024-06-29] MEDS ORDERED: POTASSIUM CHL 20 Meq TABLET PO ONE (10:45)
[2024-06-29] MEDS: cefTRIAXone 1GM/50ML D5W 50 ML IV SCH (10:47)
--- NOTE | 2024-06-29 11:44 | DVHDS2 ---
Discharge Summary Date of Admission Jun 24, 2024 at 15:39 Labs/Diagnostic Data: Laboratory Results Test 06/27/24 13:04 06/25/24 16:59 06/25/24 05:57 06/24/24 14:09 White Blood Count 3.4 10^3/uL (4.4-10.8) Red Blood Count 4.30 10^6/uL (4.5-5.90) Hemoglobin 10.8 g/dL (13.5-17.5) Hematocrit 33.2 % (41.0-53.0) Mean Corpuscular Volume 77.2 fL (80.0-100.0) Mean Corpuscular Hemoglobin 25.2 pg (28.0-32.0) Mean Corpuscular Hemoglobin Concent 32.6 g/dL (32.0-36.0) Red Cell Distribution Width 14.9 % (11.8-14.3) Platelet Count 93 10^3/uL (140-450) Mean Platelet Volume 11.1 fL (6.9-10.8) Neutrophils (%) (Auto) 86.7 % (37.0-80.0) Lymphocytes (%) (Auto) 3.4 % (10.0-50.0) Monocytes (%) (Auto) 9.6 % (0.0-12.0) Eosinophils (%) (Auto) 0.1 % (0.0-7.0) Basophils (%) (Auto) 0.2 % (0.0-2.0) Neutrophils # (Auto) 3.0 10 ^3/uL (1.6-8.6) Lymphocytes # (Auto) 0.1 10 ^3/uL (0.4-5.4) Monocytes # (Auto) 0.3 10 ^3/uL (0-1.3) Eosinophils # (Auto) 0 10 ^3/uL (0-0.8) Basophils # (Auto) 0 10 ^3/uL (0-0.2) Nucleated Red Blood Cells 0.1 % Sodium Level 132 mmol/L (136-145) Potassium Level 3.1 mmol/L (3.5-5.1) Chloride Level 99 mmol/L (98-107) Carbon Dioxide Level 25 mmol/L (20-31) Anion Gap 8 (5-15) Blood Urea Nitrogen 9 mg/dL (9-23) Creatinine 0.59 mg/dL (0.700-1.30) Glomerular Filtration Rate Calc 134 mL/min (>90) BUN/Creatinine Ratio 15.3 (10.0-20.0) Serum Glucose 146 mg/dL (74-106) Calcium Level 8.2 mg/dL (8.7-10.4) Total Bilirubin 4.7 mg/dL (0.2-1.0) Aspartate Amino Transferase (AST) 83 U/L (13-40) Alanine Aminotransferase (ALT) 37 U/L (7-40) Alkaline Phosphatase 240 U/L (46-116) Total Protein 5.6 g/dL (5.7-8.2) Albumin 3.2 g/dL (3.2-4.8) Prothrombin Time 15.9 sec (9.3-11.8) Prothrombin Time INR 1.57 (0.9-1.15) Uric Acid 2.4 mg/dL (3.7-9.2) Lactate Dehydrogenase 256 U/L (120-246) Urine Color Red-brown (Yellow) Urine Clarity Turbid (Clear) Urine pH 6.0 (5.0-9.0) Urine Specific [place] 1.024 (1.001-1.035) Urine Protein 2+ (Negative) Urine Ketones Trace (Negative) Urine Blood 1+ /uL (Negative) Urine Nitrite Negative (Negative) Urine Bilirubin 2+ (Negative) Urine Urobilinogen Over mg/dL (Negative) Urine Leukocyte Esterase Negative /uL (Negative) Urine RBC 4 /hpf (0 - 3) Urine WBC Clumps Present /hpf (None Seen) Urine Microscopic WBC 18 /HPF (0-3) Urine Squamous Epithelial Cells Few /hpf (<5) Urine Bacteria Few /hpf (None Seen) Urine Mucus Few (None Seen) Urine Glucose Trace mg/dL (Normal) Urine Opiates Screen Neg (NEGATIVE) Urine Fentanyl Screen Neg (NEGATIVE) Urine Barbiturates Screen Neg (NEGATIVE) Urine Phencyclidine Screen Neg (NEGATIVE) Urine Amphetamines Screen Neg (NEGATIVE) Urine Benzodiazepines Screen Neg (NEGATIVE) Urine Cocaine Screen Neg (NEGATIVE) Urine Cannabinoids Screen Pos (NEGATIVE) Test 06/24/24 14:05 Troponin I High Sensitivity 4 ng/L (</=54) Thyroid Stimulating Hormone (TSH) 2.03 uIU/mL (0.55-4.78) Other Laboratory Tests 06/27/24 13:04 Discharge Statement: "Patient was advised to return to the ER or call 911 if any headaches, dizziness, shortness of breath, chest pain, abdominal pain, bleeding, fevers, or worsening of medical condition. Patient was counseled about treatment plan, medications, possible side effects, patientverbalized understanding. All questions were answered to the best of my ability. This discharge took greater then 30 minutes in planning, reviewing documentation, counseling the patient, and discussing with other team members." ASSESSMENT ASSESSMENT Assessment MACK SIMONS MD Jun 29, 2024 11:44
--- NOTE | 2024-06-29 11:44 | DVHPN2 ---
Subjective The patient is seen and examined at bedside. Complain of abdominal pain. Reviewed: Care Plan Musculoskeletal: back pain Objective Vitals Vital Signs Date Time Temp Pulse Resp B/P (MAP) Pulse Ox O2 Delivery O2 Flow Rate FiO2 06/29/24 08:30 97.9 99 20 107/69 (82) 97 97.9 06/29/24 08:00 Room Air* 0 21 Intake/Output Intake and Output 06/29/24 07:00 Intake Total 1200 ml Balance 1200 ml Intake Oral 1150 ml IV Total 50 ml # Voids 8 # Bowel Movements 3 General Appearance: Alert, Oriented X3, Cooperative, No acute distress HEENT: Atraumatic, PERRLA, EOMI, Mucous membr. moist/pink Neck: Supple Lungs: Clear to auscultation, Normal air movement Cardiovascular: Regular rate, Normal S1, Normal S2, No murmurs, Gallops, Rubs Abdomen: Normal bowel sounds, Soft, No tenderness Neuro: Cranial nerves 3-12 NL Skin: Intact Psych/Mental Status: Mental status NL Medications Current Medications Medications Dose Ordered Sig/Chirag Route Start Time Stop Time Status Last Admin Dose Admin Sodium Chloride 1,000 ml @ 125 mls/hr Q8H IV 06/24/24 15:45 06/29/24 10:48 125 MLS/HR Ondansetron HCl 4 mg Q4HP PRN IV 06/24/24 15:45 06/25/24 11:41 4 MG Zinc Sulfate 220 mg DAILY PO 06/25/24 10:00 06/29/24 10:46 220 MG Ascorbic Acid 500 mg BID PO 06/24/24 22:00 06/29/24 10:46 500 MG Multivitamins 1 tab DAILY PO 06/25/24 10:00 06/29/24 10:47 1 TAB Acetaminophen 650 mg Q6HP PRN PO 06/24/24 15:45 06/27/24 16:56 650 MG Docusate Sodium 100 mg BID PO 06/27/24 22:00 06/28/24 21:51 100 MG Polyethylene Glycol 17 gm DAILYPRN PRN PO 06/27/24 11:30 06/27/24 11:52 17 GM Ibuprofen 600 mg Q8HP PRN PO 06/27/24 19:00 06/28/24 04:28 600 MG Ceftriaxone Sodium 50 ml @ 100 mls/hr DAILY@09 IV 06/29/24 09:00 06/29/24 10:47 100 MLS/HR Laboratory Results Laboratory Tests 06/27/24 13:04 Urinalysis Test 06/24/24 14:09 Urine Color Red-brown (Yellow) Urine Clarity Turbid (Clear) H Urine pH 6.0 (5.0-9.0) Urine Specific [place] 1.024 (1.001-1.035) Urine Protein 2+ (Negative) H Urine Ketones Trace (Negative) Urine Blood 1+ /uL (Negative) H Urine Nitrite Negative (Negative) Urine Bilirubin 2+ (Negative) Urine Urobilinogen Over mg/dL (Negative) Urine Leukocyte Esterase Negative /uL (Negative) Urine RBC 4 /hpf (0 - 3) Urine WBC Clumps Present /hpf (None Seen) Urine Microscopic WBC 18 /HPF (0-3) H Urine Squamous Epithelial Cells Few /hpf (<5) Urine Bacteria Few /hpf (None Seen) H Urine Mucus Few (None Seen) Urine Glucose Trace mg/dL (Normal) Microbiology Microbiology Date/Time Source Procedure Growth Status 06/27/24 20:07 Voided Urine Urine Culture - Preliminary Resulted 06/27/24 19:57 Blood Blood Culture - Preliminary NO GROWTH AFTER 24 HOURS OF INCUBATION. Resulted Assessment/Plan Assessment/Plan 28-year-old male with a known history of lymphoma status post lymphadenectomy on the right neck, status post chemotherapy for one year when he was 3-year-old, status post recurrence of lymphoma next year, status post chemotherapy for one mood year, then he was following closely with the Hematology Oncology in [place], but never followed up with the oncologist after the age of 16 year. Presented to the hospital with a intermittent fever, cold sweats at night which drenching the bed lining, unexplained weight loss with a recent weight loss about 10/20 lb in last 1-2 weeks, fatigue, back pain found to have lymphadenopathy in left mediastinal left jennifer hilar as well as left retroperitoneal concerning for lymphoma 1. B symptoms, constitutional symptoms highly suspicious for lymphoma 2. Left mediastinal, left perihilar, retroperitoneal lymphadenopathy concerning for lymphoma 3. History of lymphoma when he was 5/6year-old status post treatment 4. ELEVATED ALKALINE PHOSPHATASE -CHECK LDH, URIC ACID, IR CONSULT FOR RETROPERITONEAL LYMPH NODE BIOPSY VERSUS PULMONARY CONSULTATION FOR BRONCHOSCOPY AND PERIHILAR BIOPSY -KEEP NPO AFTER MIDNIGHT -HEMATOLOGY ONCOLOGY CONSULTATION(TALKED TO DR. Fang Starr, bi tri operator oncologist on the phone) who will follow up with the patient as an outpatient once biopsies confirmed the diagnosis. -all the family member including at bedside as well as other members were notified and explain the working diagnosis they understand and agreeable to plan. Continuing current management. Waiting for Hematology/ Oncology to see the patient Waiting for pathology input. This medical document was created using an electronic medical record system with [employer] computerized dictation system. Although this document has been carefully reviewed, there may still be some phonetic and typographical errors. These areas are purely typographical due to imperfections of the software programs, and do not reflect any compromise in the patient's medical care. MACK SIMONS MD Jun 29, 2024 11:44
[2024-06-29 11:59] VITALS: BP 113/56; PULSE 90; RESP 20; TEMP 97.6; O2SAT 97
== END 2024-06-29 13:34 | disposition home or self-care (01) | DRG 841 ==
LOC: ER 13:43 → OVERFLOW 15:39 → WEST WING 17:57
PROVIDERS: ADMIT Internal Medicine; ATTEND Internal Medicine
DX: C85.23 Mediastinal (thymic) large B-cell lymphoma, intra-abdominal lymph nodes (principal); E87.1 Hypo-osmolality and hyponatremia; D69.6 Thrombocytopenia, unspecified; Z68.30 Body mass index [BMI] 30.0-30.9, adult; E66.9 Obesity, unspecified; E86.0 Dehydration; R59.1 Generalized enlarged lymph nodes; E11.9 Type 2 diabetes mellitus without complications; K80.20 Calculus of gallbladder without cholecystitis without obstruction; Z83.3 Family history of diabetes mellitus; Z79.899 Other long term (current) drug therapy; Z92.21 Personal history of antineoplastic chemotherapy
CPT/HCPCS: 36415; 71045; 71250; 71260; 72100; 74176; 80048; 80053; 80307; 81001; 82247; 83615; 84075; 84443; 84450; 84460; 84484; 84550; 85025; 85610; 87040; 87086; 93005; 96360; 96361; G0378; J2405